=== PATIENT | female | born 1975 | race Caucasian/White ===

== ENCOUNTER 2022-07-27 14:26 | Outpatient (REF) | payer OTHER, MEDICAID, SELFPAY ==
[2022-07-27 14:46] LABS: MANUAL DIFF FLAG NO
[2022-07-27 15:02] LABS: Basophils Absolute Auto 0.1 X10*3/uL (0.0-0.2); Basophils Percent Auto 0.3 % (0-2); Eosinophils Absolute Auto 0.3 X10*3/uL (0.0-0.4); Eosinophils Percent Auto 1.9 % (0-4); Hematocrit 41.7 % (37.0-47.0); Hemoglobin 13.6 g/dl (12.0-16.0); Imm Gran Abs Auto 0.12 X10*3/uL (0.00-0.03); Imm Gran Pct Auto 0.8 % (0.0-0.4); Lymphocytes Absolute Auto 4.5 X10*3/uL (1.2-4.9); Lymphocytes Percent Auto 31.2 % (20-40); Mean Corpuscular HGB Conc 32.6 g/dl (31.0-35.0); Mean Corpuscular Hemoglobin 30.6 pg (27.0-33.0); Mean Corpuscular Volume 93.7 fL (80.0-98.0); Mean Platelet Volume 10.6 fL (9.4-12.3); Monocytes Absolute Auto 1.1 X10*3/uL (0.1-1.2); Monocytes Percent Auto 7.9 % (2-11); Neutrophils Absolute Auto 8.3 x10*3/uL (2.0-8.3); Neutrophils Percent Auto 57.9 % (45-73); Platelet Count 311 X10*3/uL (160-400); Red Blood Count 4.45 X10*6/uL (4.20-5.50); Red Cell Distribution Width 13.3 % (11.0-16.0); White Blood Count 14.4 X10*3/uL (4.8-10.8)
[2022-07-27 15:45] LABS: Erythrocyte Sedimentation Rate 5 MM/HR (0-20)
[2022-07-30 12:03] LABS: Anti Nuclear Antibody Screen NEGATIVE (NEGATIVE)
[2022-07-30 12:28] LABS: Alpha 1 Anti-trypsin 138 mg/dL (83-199)
[2022-07-30 14:08] LABS: Myeloperoxidase Antibody <1.0 AI; Proteinase 3 PR3 Antibodies <1.0 AI
[2022-07-30 17:13] LABS: IgA 201 mg/dL (47-310); IgG 934 mg/dL (600-1640); IgM 165 mg/dL (50-300)
[2022-07-30 21:43] LABS: Immunoglobulin E 2072 kU/L (<OR=114)
[2022-08-04 15:43] LABS: Asperg fumigatus Precip Abs NEGATIVE (NEGATIVE); Micropoly faeni Abs NEGATIVE (NEGATIVE); Pigeon serum Abs NEGATIVE (NEGATIVE); Saccharo pora viridis Abs NEGATIVE (NEGATIVE); Thermo candidus Abs NEGATIVE (NEGATIVE); Thermoa vulgaris #1 NEGATIVE (NEGATIVE)
== END 2022-07-27 14:27 | disposition home or self-care (01) ==
LOC: HO.LAB 14:26
PROVIDERS: Visit Provider Hospitalist
DX: J45.909 Unspecified asthma, uncomplicated (principal); R05.3 Chronic cough; R91.8 Other nonspecific abnormal finding of lung field
CPT/HCPCS: 36415; 82103; 82784; 82785; 85025; 85652; 86021; 86038; 86039; 86331; 86606; 86609; 87070; 87205

== ENCOUNTER 2022-08-06 16:28 | Outpatient (REF) | payer OTHER, MEDICAID, SELFPAY ==
--- NOTE | ~2022-08-06 | CT_ITS ---
EXAMINATION: CT CHEST WITHOUT CONTRAST CLINICAL INFORMATION: Chronic cough, asthma COMPARISON: None TECHNIQUE: Multidetector volumetric CT imaging of the chest was done. Axial MIP volume rendering provided. Sagittal and coronal reformatted images were obtained. This CT examination was performed using dose optimization techniques as appropriate, variously including the following: *Automated exposure control *Adjustment of mA and/or kV according to patient size (this includes techniques or standardized protocols for targeted exams where dose is matched to indication/reason for exam; i.e. extremities or head) *Use of iterative reconstruction technique DLP: 138 mGy-cm FINDINGS: LUNGS/PLEURA: Calcified nodule in the lateral aspect of the right upper lobe (series 5, image 187 measuring up to 9 mm with surrounding parenchymal changes in satellite micronodules possibly representing calcified granuloma versus region of prior infectious/inflammatory etiology. Smaller calcified and noncalcified nodules are noted throughout the right upper lobe for example calcified (series 5, image 260) measuring 1 mm and noncalcified (series 5, image 216) posterior laterally in the right upper lobe measuring 1 mm. Central airways are patent. No pneumothorax. No large pleural effusion. MEDIASTINUM: Heart is not enlarged. No pericardial effusion. No coronary artery calcifications. Aorta is nonaneurysmal. Main pulmonary artery is not enlarged. A few calcified precarinal, paratracheal, and right perihilar lymph nodes are noted suggesting prior granulomatous disease. Visualized portions of the thyroid are unremarkable. AXILLA: No lymphadenopathy. UPPER ABDOMEN: Unremarkable. OSSEOUS STRUCTURES: Unremarkable. CT/CT chest wo IV con IMPRESSION: 1. Calcified nodule in the lateral aspect of the right upper lobe measuring up to 9 mm with surrounding parenchymal changes and satellite micronodules possibly representing calcified granuloma versus region of prior infectious/inflammatory etiology. Smaller calcified and noncalcified nodules are noted throughout the right upper lobe for example calcified measuring 1 mm and noncalcified posterior laterally in the right upper lobe measuring 1 mm. Follow-up as per Fleischner criteria. 2. Calcified precarinal, paratracheal, and right perihilar lymph nodes are noted suggesting prior granulomatous disease. Various management parameters for solitary pulmonary nodules are in the literature. According to the Fleischner Society, recommendations for pulmonary nodules are as follows: According to the UPDATED 2017 Fleischner Society recommendations, the advised follow-up imaging for solid nodules < 6 mm is: LOW RISK PATIENT: No routine follow-up. HIGH RISK PATIENT: Optional CT at 12 months.
== END 2022-08-06 16:29 | disposition home or self-care (01) ==
LOC: HO.CT 16:28
PROVIDERS: Visit Provider Hospitalist
DX: R05.3 Chronic cough (principal); J45.909 Unspecified asthma, uncomplicated
CPT/HCPCS: 71250

== ENCOUNTER → 2022-11-13 10:37 | Outpatient (BNVA) | payer MEDICAID, SELFPAY | PROVIDERS: PCP Family Medicine; Visit Provider Hospitalist | DX: J45.51 Severe persistent asthma with (acute) exacerbation (principal); J40 Bronchitis, not specified as acute or chronic; R05.3 Chronic cough; U09.9 Post COVID-19 condition, unspecified | CPT/HCPCS: 99212 ==

== ENCOUNTER 2023-07-23 15:24 | Outpatient (AMB) | payer MEDICAID, SELFPAY ==
--- NOTE | 2023-07-23 15:25 | A.OFFVIS_ITS ---
Intake Vital Signs 07/23/23 15:26 Height 5 ft 4 in Weight 175 lb 4.28 oz BMI 30.1 BP 106/58 L Blood Pressure Location Lt brachial Position Sitting Respiration 16 Pulse 70 Pulse Source Pulse Oximeter Pulse Oximetry (%) 97 Oxygen Delivery Method Room Air Intake Visit Reasons: asthma Allergies Penicillins Allergy (Severe, Verified 07/23/23 15:28) Hives erythromycin base Allergy (Unknown, Verified 07/23/23 15:28) Unknown opiods Allergy (Severe, Uncoded 11/13/22 10:42) Vomiting HPI HPI Comments History of Present Illness Details The patient is a 47-year-old woman who was previously healthy until back beginning of the year when she she developed COVID-19. The patient did have significant respiratory complaints. Ultimately she recovered from COVID although she continued to have a worsening cough. The cough is productive in nature. Moderate severity. She also has significant wheezing. She was evaluated by pulmonology elsewhere. Partly workup included pulmonary function studies. In addition to that she had a chest x-ray without any acute disease. However she continues to require multiple courses of prednisone. Significant chest tightness and wheezing. She does have a nebulizer that she uses regularly. She did have a scare where her and mucus usually does up at nighttime she has a hard time expectorating. All of a sudden she felt she could not breathe and felt like she was going to . The patient ultimately was able to clear the mucus and ultimately was able to feel better. However, she does struggle because her symptoms do worsen at nighttime. In the office she did have significant rhonchi and wheezing. She was provided with 2 Xopenex treatments and also hypertonic saline. We were able to get a sputum culture sent to the laboratory. In the meantime she continues to have significant respiratory symptoms even on maximum respiratory therapy. She has been on Advair now for multiple months. Will go ahead and increase that over to Trelegy. I do believe that she will do better with nebulized therapies and the addition of budesonide in the meantime will be helpful to try to minimize systemic steroids. Patient will need blood work and ultimately if she still continues to have uncontrolled asthma then can consider biologic therapies. In addition to that based on the fact that she already had a chest x-ray and a pulmonary function study in continues to be symptomatic without a clear explanation go ahead and request a CT scan of the chest to assess for any bronchiectatic changes or any evidence of any pneumonitis. 11/13/2022 the patient is here for a pulm onary follow-up visit. The patient has had a tough several months. She had issues with her daughter who became gravely ill after an allergic reaction and then had to switch insurance. She ultimately was responding very well to the Trelegy inhaler. Her symptoms improved dramatically. A she was not requiring her rescue inhaler. Unfortunately then the insurance change though could not be filled. We did try to a prior approval but it was still not able to be filled. It was recommended that she start Breo and Incruse. Therefore explained to her that same medicine but taking separate inhalers and I will go ahead and send the script. In the meantime since she had not had the medication her wheezing became worse her coughing also worsen with mucus production. We did talk about her a lab work demonstrating an elevated IgE level of greater than 2000. We did talk about different biologic regimens that may be effective for her. In the meantime with her significant wheezing she may also need more prednisone. She just finished a course of prednisone last week. I will give her more prednisone for her to have. Her mucus is yellowish in color. Likely may have a little infection. Will go ahead and send her some Levaquin to see if we can treat her for enteric bacteria. As patient is not better we can always request a sputum culture to sent for further analysis. We did review also her CT scan demonstrating a calcified pulmonary nodule in the right upper lobe that she has had before otherwise no other significant findings noted. I do believe with her severe asthma symptoms and findings along with her significant allergic asthma she will be a great candidate for biologic therapy. In view of her severe allergy reactions I also provided with an EpiPen. She was also given instructions on how to use it effectively. 07/23/2023 the patient is here for pulmo nary follow-up visit. Overall the patient is doing better but seems that she did better on the Trelegy then the Breo and Incruse combination. Therefore will go ahead and switch her back to Trelegy is this is more effective when she used the medications in 1 device. The patient does still have significant asthma although at this point she has had a better baseline. She has constant daily wheezing. She is also demonstrating some eczema. She has had allergy testing in the past with signifi cantly elevated IgE levels. Therefore again we did talk about biologic therapies. She will benefit from biologic therapies to improve her symptoms overall. She still rather stay away from biologic therapies if she can avoid it. Will go ahead and recheck her blood work sometime in the springtime prior to the next visit so therefore we can address the question again. The patient may also benefit from allergy shots to try time modulated her immune response to the allergens in the future. 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 Bronchitis Chronic cough Asthma Social History (Updated 07/27/22 @ 13:47 by RIKA Alex) Patient Tobacco Use Status: Never used Tobacco Review of Systems Const Reports difficulty sleeping Eyes Denies change in vision ENT Reports nasal congestion, Reports nasal discharge and Reports post nasal drip Card Denies chest pain and Reports dyspnea Resp Reports change in phlegm color, Reports chest congestion, Reports cough, Reports excessive phlegm production, Reports dyspnea and Reports wheezing GI Denies abdominal pain Musc Reports no additional complaints Skin/Breast Reports rash Neuro Reports no additional complaints Psych Reports no additional complaints Endo Denies flushing Tomasz/Lymph Denies easy bleeding Aller/Immun Reports wheezing Physical Exam Vital Signs: Last Vital Signs Pulse 70 07/23/23 15:26 Resp 16 07/23/23 15:26 BP 106/58 L 07/23/23 15:26 Pulse Ox 97 07/23/23 15:26 Oxygen Delivery Method Room Air 07/23/23 15:26 BMI result Body Mass Index 30.1 Const General: comfortable HEENT Head: Yes atraumatic Eyes General: appearance normal, both eyes and all related structures Neck Neck: Yes supple Chest Chest palpation & inspection: normal inspection of the chest Resp Effort & Inspection: normal respiratory effort Auscultation: no crackles, no rales, no rhonchi, wheezes and diminished lung sounds Cardio Rate: regular rate Rhythm: regular rhythm Heart sounds: S1 normal heart sound present and S2 normal heart sound present GI Auscultation: normal bowel sounds Skin Rashes: no rashes Extrem General: Yes no clubbing, cyanosis or edema Assessment & Plan Assessment & Plan (1) Asthma: Code(s): J45.909 - Unspecified asthma, uncomplicated Qualifiers: Asthma complication type: uncomplicated Asthma persistence: persistent Asthma severity: severe Qualified Code(s): J45.50 - Severe persistent asthma, uncomplicated (2) Bronchitis: Code(s): J40 - Bronchitis, not specified as acute or chronic (3) Chronic cough: Code(s): R05.3 - Chronic cough (4) 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, unspecified Plan stop Breo and Incruse (not as effective) start Trelegy 200 start Singulair Acapella valve for CPT Should consider starting Biologic if no better (Xolair versus Dupixent) Likely dupixent based on her worsening atopic dermatitis Epipen Bloodwork in the Spring follow-up in 4 months Orders: Orders Complete Blood Count Auto Diff Today J40 - Bronchitis, not specified as acute or chronic, J45.909 - Unspecified asthma, uncomplicated Erythrocyte Sedimentation Rate Today J40 - Bronchitis, not specified as acute or chronic, J45.909 - Unspecified asthma, uncomplicated Immunoglobulin E Today J40 - Bronchitis, not specified as acute or chronic, J45.909 - Unspecified asthma, uncomplicated Medications: New montelukast (Singulair) 10 mg PO BEDTIME 30 tabs 11RF 30 days J45.909 - Unspecified asthma, uncomplicated Refilled bfdutxtfllq-wpvbebgpv-gvgztecm 200-62.5-25 mcg (Trelegy Ellipta) 1 inh inhalation DAILY 60 ea 4RF 30 days ymosndthjwd-jybcphbuf-cfnthwph 200-62.5-25 mcg (Trelegy Ellipta) 1 inh inhalation DAILY 30 days 60 ea 4RF Coding Level of Care Code Est Pt Level 4 (95104) Diagnoses Severe persistent asthma without complication J45.50 Asthma complication type: uncomplicated Asthma persistence: persistent Asthma severity: severe Bronchitis J40 Chronic cough R05.3 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
[2023-07-23 15:26] VITALS: BP 106/58; PULSE 70; RESP 16; O2SAT 97; BMI 30.1
== END 2023-07-23 15:56 | disposition home or self-care (01) ==
PROVIDERS: PCP Family Medicine; Visit Provider Hospitalist
DX: J45.50 Severe persistent asthma, uncomplicated (principal); J40 Bronchitis, not specified as acute or chronic; R05.3 Chronic cough; U09.9 Post COVID-19 condition, unspecified
CPT/HCPCS: 99214

== ENCOUNTER → 2023-07-23 15:24 | Outpatient (BNVA) | payer MEDICAID, SELFPAY | PROVIDERS: PCP Family Medicine; Visit Provider Hospitalist | DX: J45.50 Severe persistent asthma, uncomplicated (principal); J40 Bronchitis, not specified as acute or chronic; R05.3 Chronic cough; U09.9 Post COVID-19 condition, unspecified | CPT/HCPCS: 99212 ==

== ENCOUNTER 2024-07-28 15:17 | Outpatient (REF) | payer OTHER, SELFPAY ==
[2024-07-28 16:31] LABS: MANUAL DIFF FLAG NO
[2024-07-28 17:07] LABS: Basophils Percent Auto 0.3 % (0-2); Eosinophils Absolute Auto 0.2 X10*3/uL (0.0-0.4); Eosinophils Percent Auto 3.2 % (0-4); Hematocrit 41.3 % (37.0-47.0); Hemoglobin 13.9 g/dl (12.0-16.0); Imm Gran Abs Auto 0.01 X10*3/uL (0.00-0.03); Imm Gran Pct Auto 0.1 % (0.0-0.4); Lymphocytes Absolute Auto 2.5 X10*3/uL (1.2-4.9); Lymphocytes Percent Auto 32.4 % (20-40); Mean Corpuscular HGB Conc 33.7 g/dl (31.0-35.0); Mean Corpuscular Hemoglobin 31.5 pg (27.0-33.0); Mean Corpuscular Volume 93.7 fL (80.0-98.0); Mean Platelet Volume 10.8 fL (9.4-12.3); Monocytes Absolute Auto 0.5 X10*3/uL (0.1-1.2); Monocytes Percent Auto 6.6 % (2-11); Neutrophils Absolute Auto 4.3 x10*3/uL (2.0-8.3); Neutrophils Percent Auto 57.4 % (45-73); Platelet Count 338 X10*3/uL (160-400); Red Blood Count 4.41 X10*6/uL (4.20-5.50); Red Cell Distribution Width 12.7 % (11.0-16.0); White Blood Count 7.6 X10*3/uL (4.8-10.8)
[2024-07-28 17:48] LABS: Erythrocyte Sedimentation Rate 5 MM/HR (0-20)
[2024-07-29 13:09] LABS: IgA 214 mg/dL (47-310); IgG 1043 mg/dL (600-1640); IgM 184 mg/dL (50-300)
[2024-07-30 07:39] LABS: Class Alternaria alternata 0; Class Aspergillus fumigatus 0/1; Class Bermuda Grass 0/1; Class Birch 0; Class Cat Dander 2; Class Cladosporium herbarum 0/1; Class Cockroach 3; Class Common Ragweed 0/1; Class Cottonwood 0/1; Class Derm. pterony 5; Class Dermatophagoides farinae 5; Class Dog Dander 4; Class Elm 0; Class Maple Box Elder 0/1; Class Mountain Cedar 2; Class Mouse Urine Protein 0; Class Mugwort 0/1; Class Oak 0/1; Class Penicillium crysogenum 0/1; Class Rough Pigweed 0/1; Class Sheep Sorrel 0; Class Sycamore 0/1; Class Timothy Grass 0/1; Class Walnut Tree 0/1; Class White Ash 0/1; Class White Mulberry 0; E001 - IgE Cat Dander 2.33 kU/L; E072-IgE Mouse Urine <0.10 kU/L; G002 IgE Bermuda Grass 0.13 kU/L; G006 - IgE Timothy Grass 0.28 kU/L; I006-IgE Cockroach, German 8.03 kU/L; Immunoglobulin E 1580 kU/L (<OR=114); M001 IgE Penicillium chrysogen 0.14 kU/L; M002 - IgE Cladosporium herbar 0.22 kU/L; M003 - IgE Aspergillus fumigat 0.22 kU/L; M006 - IgE Alternaria alternat <0.10 kU/L; T001 IgE Maple/Box Elder 0.11 kU/L; T003 IgE Common Silver Birch <0.10 kU/L; T006 - IgE Cedar, Mountain 0.77 kU/L; T007 - IgE Oak, White 0.13 kU/L; T008 IgE Elm, American <0.10 kU/L; T010 - IgE Walnut 0.12 kU/L; T011 - IgE Maple Leaf Sycamore 0.19 kU/L; T014 - IgE Cottonwood 0.17 kU/L; T015 - IgE Ash, White 0.14 kU/L; T070 - IgE White Mulberry <0.10 kU/L; W001 - IgE Ragweed, Short 0.11 kU/L; W006 - IgE Mugwort 0.21 kU/L; W014 IgE Pigweed, Common 0.18 kU/L; W018 IgE Sheep Sorrel <0.10 kU/L
[2024-07-30 13:58] LABS: Anti Nuclear Antibody Screen NEGATIVE (NEGATIVE)
[2024-07-31 05:03] LABS: TS Negative Control Passed; TS Panel A 0; TS Panel B 0; TS Positive Control Passed; TSpotTB Negative (Negative)
[2024-08-05 08:53] LABS: Asperg fumigatus Precip Abs NEGATIVE; Micropoly faeni Abs NEGATIVE; Pigeon serum Abs NEGATIVE; Saccharo pora viridis Abs NEGATIVE; Thermo candidus Abs NEGATIVE; Thermoa vulgaris #1 NEGATIVE
== END 2024-07-28 15:18 | disposition home or self-care (01) ==
LOC: HO.LAB 15:17
PROVIDERS: PCP Family Medicine; Visit Provider Hospitalist
DX: J40 Bronchitis, not specified as acute or chronic (principal); J45.50 Severe persistent asthma, uncomplicated; R05.3 Chronic cough; R91.1 Solitary pulmonary nodule; R91.8 Other nonspecific abnormal finding of lung field; T78.40XA Allergy, unspecified, initial encounter
CPT/HCPCS: 36415; 82784; 82785; 85025; 85652; 86003; 86038; 86331; 86481; 86606; 86609; 99212

== ENCOUNTER 2024-07-28 15:17 | Outpatient (AMB) | payer OTHER, SELFPAY ==
--- NOTE | 2024-07-28 15:21 | MHC.OFFVIS ---
Vital Signs 07/28/24 15:23 Height 5 ft 3 in Weight 168 lb 10.458 oz BMI 29.9 BP 112/68 Blood Pressure Location Lt brachial Position Sitting Pulse 72 Pulse Oximetry (%) 97 Oxygen Delivery Method Room Air Intake Visit Reasons: Asthma follow-up Cleaner Operator Required: No Legal Document Assistant: Legal Document Assistant offered & declined Accompanied by: Self / Same As Patient Allergies Penicillins Allergy (Severe, Verified 07/28/24 15:27) Hives erythromycin base Allergy (Unknown, Verified 07/28/24 15:27) Unknown opiods Allergy (Severe, Uncoded 07/28/24 15:27) Vomiting Medication List - Last Reconciled 07/28/24 by Felecia Hernandez LPN albuterol sulfate 0.63 mg inhalation Q4-6H PRN albuterol sulfate 90 mcg/actuation 2 puffs inhalation Q6H PRN albuterol sulfate 90 mcg/actuation 2 inhalations inhalation Q6H PRN 30 days budesonide 0.5 mg (2 mL) inhalation DAILY 30 days budesonide 0.5 mg (2 mL) inhalation BID 30 days doxycycline hyclate 100 mg PO BID 10 days epinephrine (EpiPen 2-Maximo) 0.3 mg (0.3 mL) IM Q10M PRN 30 days fluticasone furoate-vilanterol 200-25 mcg/dose (Breo Ellipta) 1 inh inhalation DAILY 30 days reyebibgntk-gtujfqnws-ojytikjy 200-62.5-25 mcg (Trelegy Ellipta) 1 inh inhalation DAILY 30 days levalbuterol HCl (Xopenex) 1.25 mg (3 mL) inhalation Q6H PRN 30 days levofloxacin 500 mg PO DAILY 14 days montelukast (Singulair) 10 mg PO BEDTIME 90 days nebulizers As directed prednisone PO daily; Take 6 tabs daily x 3 days, then 5 tabs x 3 days, then 4 tabs x 3 days, then 3 tabs x 3 days, then 2 tabs daily x 3 days, then 1 tab x 3 days to complete. 18 days umeclidinium 62.5 mcg/actuation (Incruse Ellipta) 1 inh inhalation DAILY 30 days HPI Comments Details: The patient is a 48-year-old woman who was previously healthy until back beginning of the year when she she developed COVID-19. The patient did have significant respiratory complaints. Ultimately she recovered from COVID although she continued to have a worsening cough. The cough is productive in nature. Moderate severity. She also has significant wheezing. She was evaluated by pulmonology elsewhere. Partly workup included pulmonary function studies. In addition to that she had a chest x-ray without any acute disease. However she continues to require multiple courses of prednisone. Significant chest tightness and wheezing. She does have a nebulizer that she uses regularly. She did have a scare where her and mucus usually does up at nighttime she has a hard time expectorating. All of a sudden she felt she could not breathe and felt like she was going to . The patient ultimately was able to clear the mucus and ultimately was able to feel better. However, she does struggle because her symptoms do worsen at nighttime. In the office she did have significant rhonchi and wheezing. She was provided with 2 Xopenex treatments and also hypertonic saline. We were able to get a sputum culture sent to the laboratory. In the meantime she continues to have significant respiratory symptoms even on maximum respiratory therapy. She has been on Advair now for multiple months. Will go ahead and increase that over to Trelegy. I do believe that she will do better with nebulized therapies and the addition of budesonide in the meantime will be helpful to try to minimize systemic steroids. Patient will need blood work and ultimately if she still continues to have uncontrolled asthma then can consider biologic therapies. In addition to that based on the fact that she already had a chest x-ray and a pulmonary function study in continues to be symptomatic without a clear explanation go ahead and request a CT scan of the chest to assess for any bronchiectatic changes or any evidence of any pneumonitis. 11/13/2022 the patient is here for a pulmonary follow-up visit. The patient has had a tough several months. She had issues with her daughter who became gravely ill after an allergic reaction and then had to switch insurance. She ultimately was responding very well to the Trelegy inhaler. Her symptoms improved dramatically. A she was not requiring her rescue inhaler. Unfortunately then the insurance change though could not be filled. We did try to a prior approval but it was still not able to be filled. It was recommended that she start Breo and Incruse. Therefore explained to her that same medicine but taking separate inhalers and I will go ahead and send the script. In the meantime since she had not had the medication her wheezing became worse her coughing also worsen with mucus production. We did talk about her a lab work demonstrating an elevated IgE level of greater than 2000. We did talk about different biologic regimens that may be effective for her. In the meantime with her significant wheezing she may also need more prednisone. She just finished a course of prednisone last week. I will give her more prednisone for her to have. Her mucus is yellowish in color. Likely may have a little infection. Will go ahead and send her some Levaquin to see if we can treat her for enteric bacteria. As patient is not better we can always request a sputum culture to sent for further analysis. We did review also her CT scan demonstrating a calcified pulmonary nodule in the right upper lobe that she has had before otherwise no other significant findings noted. I do believe with her severe asthma symptoms and findings along with her significant allergic asthma she will be a great candidate for biologic therapy. In view of her severe allergy reactions I also provided with an EpiPen. She was also given instructions on how to use it effectively. 07/23/2023 the patient is here for pulmonary follow-up visit. Overall the patient is doing better but seems that she did better on the Trelegy then the Breo and Incruse combination. Therefore will go ahead and switch her back to Trelegy is this is more effective when she used the medications in 1 device. The patient does still have significant asthma although at this point she has had a better baseline. She has constant daily wheezing. She is also demonstrating some eczema. She has had allergy testing in the past with significantly elevated IgE levels. Therefore again we did talk about biologic therapies. She will benefit from biologic therapies to improve her symptoms overall. She still rather stay away from biologic therapies if she can avoid it. Will go ahead and recheck her blood work sometime in the springtime prior to the next visit so therefore we can address the question again. The patient may also benefit from allergy shots to try time modulated her immune response to the allergens in the future. 07/28/2024 the patient is here for a pulmonary follow-up visit. Overall she is doing fair. She responded well to the Trelegy and she is also using the singular. She is trying to exercise regularly and she is trying to minimize allergy exposure. Still though she still has a hard time breathing at times. She has needed some prednisone here and there for exacerbations. The last time we did blood work her IgE level significantly elevated and her CBC with differential demonstrated a neutrophilic predominant. On examination the patient continues to have significant wheezing and rhonchi. She is working closely with reflux disease and she is feels that minimizing her reflux has improve her overall breathing. I do believe that this plays a big role although I do believe that she also has a significant allergic component. Therefore based on the fact that she is not completely responding to Trelegy will go ahead and request blood work. In addition to that I did review her last CT scan of the chest back in 2021 which she had evidence of granulomas suggesting of granulomas related diseases. Therefore the blood work will also include a T spot to make sure that there isn't any history of latent tuberculosis. Depending on the blood work will talk about biologics. I do believe the patient is a great candidate for biologics at this time specially since she has tried and failed all inhalers as she continues to be symptomatic even on Trelegy and she continues to require prednisone on a regular basis. 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 Bronchitis Chronic cough Asthma Social History Patient Tobacco Use Status: Never used Tobacco Review of Systems Const Reports difficulty sleeping Eyes Denies change in vision ENT Reports nasal congestion, Reports nasal discharge and Reports post nasal drip Card Denies chest pain and Reports dyspnea Resp Reports chest congestion, Reports cough, Reports dyspnea and Reports wheezing GI Reports dyspepsia and Reports heartburn Musc Reports no additional complaints Skin/Breast Reports rash Neuro Reports no additional complaints Psych Reports no additional complaints Endo Denies flushing Tomasz/Lymph Denies easy bleeding Aller/Immun Reports wheezing Physical Exam Vital Signs: Last Vital Signs Pulse 72 07/28/24 15:23 BP 112/68 07/28/24 15:23 Pulse Ox 97 07/28/24 15:23 Oxygen Delivery Method Room Air 07/28/24 15:23 BMI result Body Mass Index 29.9 Const General: comfortable HEENT Head: Yes atraumatic Eyes General: appearance normal, both eyes and all related structures Neck Neck: Yes supple Chest Chest palpation & inspection: normal inspection of the chest Resp Effort & Inspection: normal respiratory effort and prolonged expiratory phase Auscultation: no crackles, no rales, rhonchi, wheezes and diminished lung sounds Cardio Rate: regular rate Rhythm: regular rhythm Heart sounds: S1 normal heart sound present and S2 normal heart sound present GI Auscultation: normal bowel sounds Skin Rashes: no rashes Extrem General: Yes no clubbing, cyanosis or edema Assessment & Plan Assessment & Plan (1) Asthma: Code(s): J45.909 - Unspecified asthma, uncomplicated Category: Medical Qualifiers: Asthma complication type: uncomplicated Asthma persistence: persistent Asthma severity: severe Qualified Code(s): J45.50 - Severe persistent asthma, uncomplicated (2) Bronchitis: Code(s): J40 - Bronchitis, not specified as acute or chronic Category: Medical (3) Chronic cough: Code(s): R05.3 - Chronic cough Category: Medical (4) Allergies: Code(s): T78.40XA - Allergy, unspecified, initial encounter Category: Medical Qualifiers: Encounter type: subsequent encounter Qualified Code(s): T78.40XD - Allergy, unspecified, subsequent encounter (5) Pulmonary nodule: Comment: calcified consistent with a granuloma Code(s): R91.1 - Solitary pulmonary nodule Category: Medical Plan continue Trelegy 200 Singulair Acapella valve for CPT Continues symptomatic, multiple courses of prednisone. Needs to start Biologic (Xolair versus Dupixent) Likely dupixent based on her worsening atopic dermatitis. But we will request bloodwotk CXR Epipen follow-up in 3 months Orders: Orders Complete Blood Count Auto Diff Today J40 - Bronchitis, not specified as acute or chronic, J45.50 - Severe persistent asthma, uncomplicated, R05.3 - Chronic cough, T78.40XA - Allergy, unspecified, initial encounter Hypersensitive Pneumonitis Prf Today J40 - Bronchitis, not specified as acute or chronic, J45.50 - Severe persistent asthma, uncomplicated, R05.3 - Chronic cough, R91.8 - Other nonspecific abnormal finding of lung field, T78.40XA - Allergy, unspecified, initial encounter NIEVES Reflex Titer and Pattern Today J40 - Bronchitis, not specified as acute or chronic, J45.50 - Severe persistent asthma, uncomplicated, R05.3 - Chronic cough, T78.40XA - Allergy, unspecified, initial encounter XR chest 2V Today J40 - Bronchitis, not specified as acute or chronic, J45.50 - Severe persistent asthma, uncomplicated, R05.3 - Chronic cough, T78.40XA - Allergy, unspecified, initial encounter T Spot TB Today J40 - Bronchitis, not specified as acute or chronic, J45.50 - Severe persistent asthma, uncomplicated, R05.3 - Chronic cough, T78.40XA - Allergy, unspecified, initial encounter Resp Allergy Profile Region I Today J40 - Bronchitis, not specified as acute or chronic, J45.50 - Severe persistent asthma, uncomplicated, R05.3 - Chronic cough, R91.1 - Solitary pulmonary nodule, T78.40XA - Allergy, unspecified, initial encounter Immunoglobulins,IgG IgA IgM Today J40 - Bronchitis, not specified as acute or chronic, J45.50 - Severe persistent asthma, uncomplicated, R05.3 - Chronic cough, T78.40XA - Allergy, unspecified, initial encounter Immunoglobulin E Today J40 - Bronchitis, not specified as acute or chronic, J45.50 - Severe persistent asthma, uncomplicated, R05.3 - Chronic cough, T78.40XA - Allergy, unspecified, initial encounter Erythrocyte Sedimentation Rate Today J40 - Bronchitis, not specified as acute or chronic, J45.50 - Severe persistent asthma, uncomplicated, R05.3 - Chronic cough, T78.40XA - Allergy, unspecified, initial encounter Coding Level of Care Code Est Pt Level 4 (98717) Diagnoses Severe persistent asthma without complication J45.50 Asthma complication type: uncomplicated Asthma persistence: persistent Asthma severity: severe Bronchitis J40 Chronic cough R05.3 Allergy, subsequent encounter T78.40XD Encounter type: subsequent encounter Pulmonary nodule R91.1 Time Spent (min) 17
[2024-07-28 15:23] VITALS: BP 112/68; PULSE 72; O2SAT 97; BMI 29.9
== END 2024-07-28 16:07 | disposition home or self-care (01) ==
PROVIDERS: PCP Family Medicine; Visit Provider Hospitalist
DX: J45.50 Severe persistent asthma, uncomplicated (principal); J40 Bronchitis, not specified as acute or chronic; R05.3 Chronic cough; T78.40XD Allergy, unspecified, subsequent encounter; R91.1 Solitary pulmonary nodule
CPT/HCPCS: 99214

== ENCOUNTER 2024-11-02 15:28 | Outpatient (AMB) | payer OTHER, SELFPAY ==
--- NOTE | 2024-11-02 15:38 | A.OFFVIS_ITS ---
Vital Signs 11/02/24 15:39 Height 5 ft 3 in Weight 166 lb 7.184 oz BMI 29.5 BP 120/68 Blood Pressure Location Rt brachial Position Sitting Pulse 65 Pulse Source Pulse Oximeter Pulse Oximetry (%) 98 Oxygen Delivery Method Room Air Intake Visit Reasons: Asthma follow-up Allergies Penicillins Allergy (Severe, Verified 11/02/24 15:44) Hives erythromycin base Allergy (Unknown, Verified 11/02/24 15:44) Unknown opiods Allergy (Severe, Uncoded 11/02/24 15:44) Vomiting HPI Comments Details: The patient is a 49-year-old woman who was previously healthy until back beginning of the year when she she developed COVID-19. The patient did have significant respiratory complaints. Ultimately she recovered from COVID altho ugh she continued to have a worsening cough. The cough is productive in nature. Moderate severity. She also has significant wheezing. She was evaluated by pulmonology elsewhere. Partly workup included pulmonary function studies. In addition to that she had a chest x-ray without any acute disease. However she continues to require multiple courses of prednisone. Significant chest tightness and wheezing. She does have a nebulizer that she uses regularly. She did have a scare where her and mucus usually does up at nighttime she has a hard time expectorating. All of a sudden she felt she could not breathe and felt like she was going to . The patient ultimately was able to clear the mucus and ultimately was able to feel better. However, she does struggle because her symptoms do worsen at nighttime. In the office she did have significant rhonchi and wheezing. She was provided with 2 Xopenex treatments and also hypertonic saline. We were able to get a sputum culture sent to the laboratory. In the meantime she continues to have significant respiratory symptoms even on maximum respiratory therapy. She has been on Advair now for multiple months. Will go ahead and increase that over to Trelegy. I do believe that she will do better with nebulized therapies and the addition of budesonide in the meantime will be helpful to try to minimize systemic steroids. Patient will need blood work and ultimately if she still continues to have uncontrolled asthma then can consider biologic therapies. In addition to that based on the fact that she already had a chest x-ray and a pulmonary function study in continues to be symptomatic without a clear explanation go ahead and request a CT scan of the chest to assess for any bronchiectatic changes or any evidence of any pneumonitis. 11/13/2022 the patient is here for a pulmonary follow-up visit. The patient has had a tough several months. She had issues with her daughter who became gravely ill after an allergic reaction and then had to switch insurance. She ultimately was responding very well to the Trelegy inhaler. Her symptoms improved dramatically. A she was not requiring her rescue inhaler. Unfortunately then the insurance change though could not be filled. We did try to a prior approval but it was still not able to be filled. It was recommended that she start Breo and Incruse. Therefore explained to her that same medicine but taking separate inhalers and I will go ahead and send the script. In the meantime since she had not had the medication her wheezing became worse her coughing also worsen with mucus production. We did talk about her a lab work demonstrating an elevated IgE level of greater than 2000. We did talk about different biologic regimens that may be effective for her. In the meantime with her significant wheezing she may also need more prednisone. She just finished a course of prednisone last week. I will give her more prednisone for her to have. Her mucus is yellowish in color. Likely may have a little infection. Will go ahead and send her some Levaquin to see if we can treat her for enteric bacteria. As patient is not better we can always request a sputum culture to sent for further analysis. We did review also her CT scan demonstrating a calcified pulmonary nodule in the right upper lobe that she has had before otherwise no other significant findings noted. I do believe with her severe asthma symptoms and findings along with her significant allergic asthma she will be a great candidate for biologic therapy. In view of her severe allergy reactions I also provided with an EpiPen. She was also given instructions on how to use it effectively. 07/23/2023 the patient is here for pulmonary follow-up visit. Overall the patient is doing better but seems that she did better on the Trelegy then the Breo and Incruse combination. Therefore will go ahead and switch her back to Trelegy is this is more effective when she used the medications in 1 device. The patient does still have significant asthma although at this point she has had a better baseline. She has constant daily wheezing. She is also demonstrating some eczema. She has had allergy testing in the past with significantly elevated IgE levels. Therefore again we did talk about biologic therapies. She will benefit from biologic therapies to improve her symptoms overall. She still rather stay away from biologic therapies if she can avoid it. Will go ahead and recheck her blood work sometime in the springtime prior to the next visit so therefore we can address the question again. The patient may also benefit from allergy shots to try time modulated her immune response to the allergens in the future. 07/28/2024 the patient is here for a pulmonary follow-up visit. Overall she is doing fair. She responded well to the Trelegy and she is also using the singular. She is trying to exercise regularly and she is trying to minimize allergy exposure. Still though she still has a hard time breathing at times. She has needed some prednisone here and there for exacerbations. The last time we did blood work her IgE level significantly elevated and her CBC with differential demonstrated a neutrophilic predominant. On examination the patient continues to have significant wheezing and rhonchi. She is working closely with reflux disease and she is feels that minimizing her reflux has improve her overall breathing. I do believe that this plays a big role although I do believe that she also has a significant allergic component. Therefore based on the fact that she is not completely responding to Trelegy will go ahead and request blood work. In addition to that I did review her last CT scan of the chest back in 2021 which she had evidence of granulomas suggesting of granulomas related diseases. Therefore the blood work will also include a T spot to make sure that there isn't any history of latent tuberculosis. Depending on the blood work will talk about biologics. I do believe the patient is a great candidate for biologics at this time specially since she has tried and failed all inhalers as she continues to be symptomatic even on Trelegy and she continues to require prednisone on a regular basis. 11/02/2024 the patient is here for a pulmonary follow-up visit. Since we last spoke she was exposed to the flu and she developed flu-like symptoms. Her daughter tested positive for flu A. She never did test. She did continues take her medications as prescribed. In she continued to have a cough that has been lingering. She feels some heaviness of the chest moderate severity. She now is wondering about taking something to make the symptoms improved. She has significant rhonchi and wheezing on exam and diminished breath sounds along with prolonged expiratory phase. Will go ahead and order prednisone for her and also she can start doxycycline for postviral bacterial bronchitis. In the meantime the patient does continue with the Trelegy. She continues to have symptoms on a regular basis and she has a significantly elevated IgE. The patient also has an elevated eosinophil count. Will go ahead and start her on Dupixent as the very good option to treat her severe persistent asthma with frequent exacerbations, her dermatitis at this time. 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 Bronchitis Chronic cough Asthma Social History Patient Tobacco Use Status: Never used Tobacco Review of Systems Const Reports difficulty sleeping Eyes Denies change in vision ENT Reports nasal congestion, Reports nasal discharge and Reports post nasal drip Card Denies chest pain and Reports dyspnea Resp Reports chest congestion, Reports cough, Reports dyspnea and Reports wheezing GI Reports dyspepsia and Reports heartburn Musc Reports no additional complaints Skin/Breast Reports rash Neuro Reports no additional complaints Psych Reports no additional complaints Endo Denies flushing Tomasz/Lymph Denies easy bleeding Aller/Immun Reports wheezing Physical Exam Vital Signs: Last Vital Signs Pulse 65 11/02/24 15:39 BP 120/68 11/02/24 15:39 Pulse Ox 98 11/02/24 15:39 Oxygen Delivery Method Room Air 11/02/24 15:39 BMI result Body Mass Index 29.5 Const General: comfortable HEENT Head: Yes atraumatic Eyes General: appearance normal, both eyes and all related structures Neck Neck: Yes supple Chest Chest palpation & inspection: normal inspection of the chest Resp Effort & Inspection: normal respiratory effort and prolonged expiratory phase Auscultation: no crackles, no rales, rhonchi, wheezes and diminished lung sounds Cardio Rate: regular rate Rhythm: regular rhythm Heart sounds: S1 normal heart sound present and S2 normal heart sound present GI Auscultation: normal bowel sounds Skin Rashes: no rashes Extrem General: Yes no clubbing, cyanosis or edema Assessment & Plan Assessment & Plan (1) Asthma: Code(s): J45.909 - Unspecified asthma, uncomplicated Category: Medical Qualifiers: Asthma complication type: uncomplicated Asthma persistence: persistent Asthma severity: severe Qualified Code(s): J45.50 - Severe persistent asthma, uncomplicated (2) Bronchitis: Code(s): J40 - Bronchitis, not specified as acute or chronic Category: Medical (3) Chronic cough: Code(s): R05.3 - Chronic cough Category: Medical (4) Allergies: Code(s): T78.40XA - Allergy, unspecified, initial encounter Category: Medical Qualifiers: Encounter type: subsequent encounter Qualified Code(s): T78.40XD - Allergy, unspecified, subsequent encounter (5) Pulmonary nodule: Comment: calcified consistent with a granuloma Code(s): R91.1 - Solitary pulmonary nodule Category: Medical Plan continue Trelegy 200 stpped Daliresp start Doxycycline Prednisone 40mg with taper start Dupixent Singulair Acapella valve for CPT Epipen follow-up in 3-4 months Medications: New doxycycline hyclate 100 mg PO BID 20 caps 0RF 10 days epinephrine (EpiPen 2-Maximo) for 2 doses 0.3 mg (0.3 mL) IM Q10M PRN 2 ea 6RF anaphylaxis 30 days J45.40 - Moderate persistent asthma, uncomplicated Coding Level of Care Code Est Pt Level 4 (62835) Diagnoses Severe persistent asthma without complication J45.50 Asthma complication type: uncomplicated Asthma persistence: persistent Asthma severity: severe Bronchitis J40 Chronic cough R05.3 Allergy, subsequent encounter T78.40XD Encounter type: subsequent encounter Pulmonary nodule R91.1 Time Spent (min) 16
[2024-11-02 15:39] VITALS: BP 120/68; PULSE 65; O2SAT 98; BMI 29.5
== END 2024-11-02 16:19 | disposition home or self-care (01) ==
LOC: HO.HPS 15:28
PROVIDERS: PCP Internal Medicine; Visit Provider Hospitalist
DX: J45.50 Severe persistent asthma, uncomplicated (principal); J40 Bronchitis, not specified as acute or chronic; R05.3 Chronic cough; T78.40XD Allergy, unspecified, subsequent encounter; R91.1 Solitary pulmonary nodule
CPT/HCPCS: 99214

== ENCOUNTER → 2024-11-02 15:28 | Outpatient (BNVA) | payer OTHER, SELFPAY | PROVIDERS: PCP Internal Medicine; Visit Provider Hospitalist | DX: J45.50 Severe persistent asthma, uncomplicated (principal); J40 Bronchitis, not specified as acute or chronic; R05.3 Chronic cough; R91.1 Solitary pulmonary nodule; T78.40XD Allergy, unspecified, subsequent encounter; X58.XXXD Exposure to other specified factors, subsequent encounter | CPT/HCPCS: 99212 ==

== ENCOUNTER 2024-12-09 09:10 | Outpatient (AMB) | payer OTHER, SELFPAY ==
[2024-12-09 10:43] VITALS: BP 110/68; PULSE 72; O2SAT 97
--- NOTE | 2024-12-09 10:43 | A.OFFVIS_ITS ---
Vital Signs 12/09/24 10:43 Height 5 ft 3 in BP 110/68 Blood Pressure Location Rt brachial Position Sitting Pulse 72 Pulse Source Pulse Oximeter Pulse Oximetry (%) 97 Oxygen Delivery Method Room Air Intake Visit Reasons: dupixent teaching Allergies Penicillins Allergy (Severe, Verified 12/09/24 10:44) Hives erythromycin base Allergy (Unknown, Verified 12/09/24 10:44) Unknown opiods Allergy (Severe, Uncoded 12/09/24 10:44) Vomiting Medication List - Last Reconciled 12/09/24 by Nubia Hook LPN albuterol sulfate 0.63 mg inhalation Q4-6H PRN albuterol sulfate 90 mcg/actuation 2 puffs inhalation Q6H PRN albuterol sulfate 90 mcg/actuation 2 inhalations inhalation Q6H PRN 30 days budesonide 0.5 mg (2 mL) inhalation DAILY 30 days budesonide 0.5 mg (2 mL) inhalation BID 30 days doxycycline hyclate 100 mg PO BID 10 days dupilumab (Dupixent) 300 mg (2 mL) subcut Q2W 4 weeks dupilumab (Dupixent) 600 mg (4 mL) subcut ONCE 2 weeks epinephrine (EpiPen 2-Maximo) 0.3 mg (0.3 mL) IM Q10M PRN 30 days epinephrine (EpiPen 2-Maximo) 0.3 mg (0.3 mL) IM Q10M PRN 30 days [id number]-ywtawpds 200-62.5-25 mcg (Trelegy Ellipta) 1 inh inhalation DAILY 30 days montelukast (Singulair) 10 mg PO BEDTIME 90 days nebulizers As directed roflumilast (Daliresp) 250 mcg PO DAILY 30 days HPI Comments Details: Jyoti and her Grady are here for a Dupixent teach Grady was educated on hand washing, injection preparation, administration, and disposal.? Grady was able to return demonstrate proper technique for hand washing, injection preparation, administration and disposal of needle and states he has no questions at this time. Medication Dupixent 300mg/2mL autoinjector (patient?s own meds) Loading dose of 600mg given by her in 2 SQ injections; injection #1 R upper arm ;? injection #2 L thigh? Lot# [id number] expires 07/25/2026. Patient and her spouse aware her next injection is in 15 days. Nurse visit only.? [facility] Medical History (Updated 07/28/24 @ 22:32 by Ashok Doran MD) Pulmonary nodule Allergies [id number] syndrome Bronchitis Chronic cough Asthma Social History Patient Tobacco Use Status: Never used Tobacco Physical Exam Vital Signs: Last Vital Signs Pulse 72 12/09/24 10:43 BP 110/68 12/09/24 10:43 Pulse Ox 97 12/09/24 10:43 Oxygen Delivery Method Room Air 12/09/24 10:43 Assessment & Plan Assessment & Plan (1) Asthma: Code(s): J45.909 - Unspecified asthma, uncomplicated Category: Medical Qualifiers: Asthma complication type: uncomplicated Asthma persistence: persistent Asthma severity: severe Qualified Code(s): J45.50 - Severe persistent asthma, uncomplicated Plan: start Dupixent Coding Level of Care Code Established Pt Est Pt Level 1 (00140) Patient Type Established Diagnoses Severe persistent asthma without complication J45.50 Asthma complication type: uncomplicated Asthma persistence: persistent Asthma severity: severe Comment NURSE VISIT ONLY
== END 2024-12-09 11:00 | disposition home or self-care (01) ==
LOC: HO.HPS 09:11
PROVIDERS: PCP Internal Medicine; Visit Provider Hospitalist
DX: J45.50 Severe persistent asthma, uncomplicated (principal)

== ENCOUNTER → 2024-12-09 09:10 | Outpatient (BNVA) | payer OTHER, SELFPAY | PROVIDERS: PCP Internal Medicine; Visit Provider Hospitalist | DX: J45.50 Severe persistent asthma, uncomplicated (principal); Z71.89 Other specified counseling | CPT/HCPCS: 99211 ==

== ENCOUNTER 2024-12-24 08:39 | Outpatient (AMB) | payer OTHER, SELFPAY ==
[2024-12-24 09:01] VITALS: BP 100/62; PULSE 60; O2SAT 98
--- NOTE | 2024-12-24 09:01 | MHC.OFFVIS ---
Vital Signs 12/24/24 09:01 Height 5 ft 3 in BP 100/62 Blood Pressure Location Rt brachial Position Sitting Pulse 60 Pulse Source Pulse Oximeter Pulse Oximetry (%) 98 Oxygen Delivery Method Room Air Intake Visit Reasons: Dupixent Teach Allergies Penicillins Allergy (Severe, Verified 12/24/24 09:01) Hives erythromycin base Allergy (Unknown, Verified 12/24/24 09:01) Unknown opiods Allergy (Severe, Uncoded 12/24/24 09:01) Vomiting Medication List - Last Reconciled 12/24/24 by Nubia Hook LPN albuterol sulfate 0.63 mg inhalation Q4-6H PRN albuterol sulfate 90 mcg/actuation 2 puffs inhalation Q6H PRN albuterol sulfate 90 mcg/actuation 2 inhalations inhalation Q6H PRN 30 days budesonide 0.5 mg (2 mL) inhalation DAILY 30 days budesonide 0.5 mg (2 mL) inhalation BID 30 days doxycycline hyclate 100 mg PO BID 10 days dupilumab (Dupixent) 300 mg (2 mL) subcut Q2W 4 weeks dupilumab (Dupixent) 600 mg (4 mL) subcut ONCE 2 weeks epinephrine (EpiPen 2-Maximo) 0.3 mg (0.3 mL) IM Q10M PRN 30 days epinephrine (EpiPen 2-Maximo) 0.3 mg (0.3 mL) IM Q10M PRN 30 days kagxohxkmvq-naqurrkhu-bhuqogvu 200-62.5-25 mcg (Trelegy Ellipta) 1 ea inhalation DAILY montelukast (Singulair) 10 mg PO BEDTIME 90 days nebulizers As directed roflumilast (Daliresp) 250 mcg PO DAILY 30 days HPI Comments Details: Jyoti and her Grady are here for a Dupixent teach of the prefilled syringe. Kiaraclarissaalden was educated on hand washing, injection preparation, administration, and disposal.? He was able to return demonstrate proper technique for hand washing, injection preparation, administration and disposal of needle and states he has no questions at this time. Medication Dupixent 300mg/2mL pre-filled syringe (patient?s own meds) maintenance dose of 300mg given by the patient's spouse in 1 SQ injection to her R upper arm Lot# [id number] expires 10/2026. Patient aware her next injection is in 14 days. Nurse visit only.? [facility] Medical History (Updated 07/28/24 @ 22:32 by Ashok Doran MD) Pulmonary nodule Allergies [id number] syndrome Bronchitis Chronic cough Asthma Social History Patient Tobacco Use Status: Never used Tobacco Physical Exam Vital Signs: Last Vital Signs Pulse 60 12/24/24 09:01 BP 100/62 12/24/24 09:01 Pulse Ox 98 12/24/24 09:01 Oxygen Delivery Method Room Air 12/24/24 09:01 Assessment & Plan Assessment & Plan (1) Asthma: Code(s): J45.909 - Unspecified asthma, uncomplicated Category: Medical Qualifiers: Asthma complication type: uncomplicated Asthma persistence: persistent Asthma severity: severe Qualified Code(s): J45.50 - Severe persistent asthma, uncomplicated Plan Dupixent Coding Level of Care Code Established Pt Est Pt Level 1 (65684) Patient Type Established Diagnoses Severe persistent asthma without complication J45.50 Asthma complication type: uncomplicated Asthma persistence: persistent Asthma severity: severe Comment NURSE VISIT ONLY
== END 2024-12-24 08:57 | disposition home or self-care (01) ==
LOC: HO.HPS 08:39
PROVIDERS: PCP Internal Medicine; Visit Provider Hospitalist
DX: J45.50 Severe persistent asthma, uncomplicated (principal)

== ENCOUNTER → 2024-12-24 08:39 | Outpatient (BNVA) | payer OTHER, SELFPAY | PROVIDERS: PCP Internal Medicine; Visit Provider Hospitalist | DX: J45.50 Severe persistent asthma, uncomplicated (principal) | CPT/HCPCS: 99211 ==

== ENCOUNTER 2025-05-06 13:59 | Outpatient (AMB) | payer OTHER, SELFPAY ==
--- OUTSIDE RECORDS SUMMARY | 2021-07-27 17:25 | XMS_ITS | Encounter Summary ---
Author Organization [facility] Address [address] [place] [address] [place] [phone] Phone Care Team Providers Care General Adjuster Name Role Phone Garibay Radha Romero CNM Unavailable Mason Bush MD Unavailable Vero Tucker NP Unavailable Gerard Atkinson MD Unavailable Jonathon Maya PA-C Unavailable Martin Pulido MD Unavailable [phone] Jennifer Dimas DIRECTOR OF BUSINESS OPERATIONS Unavailable Jannie VazquezP Unavailable Padilla Al BALLAST REGULATOR OPERATOR Unavailable Jannie Vazquez [facility] Primary Care Provide r Chelsea Martinez MD, MPH Unavailable [phone] Encounter Details Date Type Department Care Team (Late st Contact Info) Description 07/27/2021 4:25 PM EST Hospital Encounter [facility] [address] [place] [id number] Olivia Saenz, BALLAST REGULATOR OPERATOR [address] [place] [phone] Social History Tobacco Use Types Packs/Day Years Used Date Smoking Tobacco: Never Passive Smoke Exposure: Never Smokeless Tobacco: Never Alcohol Use Standard Drinks/Week Comments Yes 1 (1 standard drink = 0.6 oz pur e alcohol) Usually less than once a week Child or Family Care Answer Date Record ed Do you have problems with on e of the following making it difficult for you to work, study, or receive health care? No 08/23/2024 Education Answer Date Recorded Are you interested in help w ith more adult education (for example, completing high school, GED, job training, learning the Lao language, technical skills, or developing parenting skills)? No 08/23/2024 Are you concerned about learning? Not on file 08/23/2024 No 08/23/2024 Yes 08/23/2024 Food Answer Date Recorded Within the past 6 months we worried whether our food would run out before we got money to buy more. Never True 08/23/2024 Within the past 6 months the food we bought just didn't last and we didn't have enough money to get more. Never True Residential Stability Answer Date Recor ded What is your housing situation today? I have malka sing 08/23/2024 How many times have you move d in the past 12 months? Zero (I did not move) 08/23/2024 Paying for Meds Answer Date Recorded Do you have trouble paying for medicines? No 08/23/2024 Paying Utility Bills Answer Date Record ed Do you have trouble paying your heating or elect ricity bill? No 08/23/2024 Transportation Answer Date Recorded Has the lack of transportati on kept you from medical appointments or from getting medications? No 08/23/2024 Unemployment Answer Date Recorded Are you currently unemployed or working on a part-time or temporary basis, and looking for work? No 09/18/2022 Digital Access Answer Date Recorded No 08/23/2024 Yes 08/23/2024 Do you have reliable internet access at home? Ye s 08/23/2024 Do you have a device (e.g., phone, tablet, computer) with a working camera? Yes 08/23/2024 Intimate Partner Violence Answer Date R ecorded Denied Basic Needs Not on file 08/23/2024 In the past 12 months have y ou been in a relationship with a person who hurts, threatens, or tries to control you? No 08/23/2024 Worried food would run out Not on file 08/23 In the past 12 months have y ou been in a relationship with a person who hurts, threatens, or tries to control you? 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 file Not on file Not on file documented as of this encounter Plan of Treatment Upcoming Encounters Date Type Department Care Team (Late st Contact Info) Description 07/03/2024 Procedure Pass [address] [id number] 07/23/2025 4:00 PM EST Appointment [address] [address] Mason Bush MD [address] [place] [address], [address] [place] [address] [email or web address] documented as of this encounter Procedures Procedure Name Priority Date/Time Associated Diagnosis Comments XR CHEST PA AND LATERAL 2 VIEWS Urgent/patient waiting 07/27/2021 4:39 PM EST Shortness of breath documented in this encounter Results * XR CHEST PA AND LATERAL 2 VIEWS (07/27/2021 4:39 PM EST) Anatomical Region Laterality Modality Chest Computed Radiogr aphy 07/27/2021 4:44 PM EST Impressions 07/27/2021 4:49 PM EST No acute abnormality. ATTESTATION: I, Dutch Combs as teaching physician, have reviewed the images for this case and if necessary edited the report originally created by Otto Giraldo. Narrative 07/27/2021 4:49 PM EST XR CHEST PA AND LATERAL 2 VIEWS COMPARISON: XR CHEST PA AND LATERAL 2 VIEWS 2017- FINDINGS: Devices/Tubes/Lines: None. Lungs: Similar area of scarring projecting over the lateral right lung compared to prior chest x-ray dated October 07, 2017. The lungs are clear. No focal consolidation or pulmonary edema. Pleura: No pleural effusion or pneumothorax. Heart/Mediastinum: The heart and mediastinum are normal. Bones/Soft Tissues: No significant skeletal abnormality. Procedure Note Dutch Combs MD - 07/27/2021 XR CHEST PA AND LATERAL 2 VIEWS COMPARISON: XR CHEST PA AND LATERAL 2 VIEWS 2017- FINDINGS: Devices/Tubes/Lines: None. Lungs: Similar area of scarring projecting over the lateral right lungcompared to prior chest x-ray dated October 07, 2017. The lungs areclear. No focal consolidation or pulmonary edema. Pleura: No pleural effusion or pneumothorax. Heart/Mediastinum: The heart and mediastinum are normal. Bones/Soft Tissues: No significant skeletal abnormality. IMPRESSION: No acute abnormality. ATTESTATION: I, Dutch Combs as teaching physician, have reviewed theimages for this case and if necessary edited the report originally createdby Otto Giraldo. Olivia Saenz BALLAST REGULATOR OPERATOR IMG XR CHEST Final Resul t documented in this encounter Visit Diagnoses Not on filedocumented in this encounter Additional Health Concerns Infection Onset Date Last Indicated Resolved Time CoV-Risk 07/18/2021 07/27/2021 08/06/2021 1:21 AM EST CoV-Risk Comment:Per Ambulatory Triage Form 08/28/2021 09/02/202109/03 4:05 AM EST COVID-19 09/02/2021 09/02/2021 09/23/2021 1:22 AM EST CoV-Risk 11/18/2021 11/18/2021 11/29/2021 1:21 AM EDT CoV-Risk 12/15/2021 12/15/2021 12/26/2021 1:22 AM EDT CoV-Presumed 01/31/2022 01/31/2022 02/21/2022 1:22 AM EDT CoV-Risk 02/09/2022 02/09/2022 02/20/2022 1:24 AM EDT CoV-Risk 05/28/2022 05/28/2022 06/08/2022 1:22 AM EDT CoV-Risk 07/11/2022 07/11/2022 07/22/2022 3:51 AM EST CoV-Risk 06/12/2023 06/12/2023 06/23/2023 1:23 AM EDT CoV-Risk 08/01/2024 08/01/2024 08/12/2024 1:21 AM EST documented as of this encounter Care Teams General Adjuster Relationship Specialty Start Date End Date Jannie Vazquez FNP [address] [place] [id number] PCP - General 09/12/17 08/27/21 Radha Garibay CNM [address] [place] [address] Historical LMR Provider 06/10/17 2 Mason Bush MD [address] [place] [address] Historical LMR Provider 06/10/17 Vero Tucker NP [address] [place] [address] [email or web address] Historical LMR Provider 06/10/17 09/02/21 Gerard Atkinson MD [address] [place] [address] Historical LMR Provider 06/10/17 Jonathon Maya PA-C [address] [facility], [facility] [place] [address] Historical LMR Provider 06/10/17 Martin Pulido MD [address] [facility] [place] [address] Historical LMR Provider 06/10/17 09/02/21 Jennifer Dimas NP [address] [place] [address] Historical LMR Provider 06/10/17 Jannie Vazquez FNP [address] [place] [address] Historical LMR Provider 06/10/17 Padilla Al CNP [address] [facility] [place] [address] Historical LMR Provider 06/10/17 Chelsea Martinez MD, MPH [address] [facility] [address] [place] [address] Insurance Assigned Provider 03/04/2105/04 documented as of this encounter Additional Source Comments The information contained in this document represents components of the legal health record. It is not the complete legal health record.[facility]
[2025-05-06 14:01] VITALS: BP 100/62; PULSE 78; O2SAT 97; BMI 29.1
--- NOTE | 2025-05-06 14:01 | MHC.OFFVIS ---
Vital Signs 05/06/25 14:01 Height 5 ft 3 in Weight 164 lb 3.91 oz BMI 29.1 BP 100/62 Blood Pressure Location Lt brachial Position Sitting Pulse 78 Pulse Source Pulse Oximeter Pulse Oximetry (%) 97 Oxygen Delivery Method Room Air Intake Visit Reasons: Discuss Dupixent Side Effects Acid Correction Hand Required: No Accompanied by: Self / Same As Patient Allergies Penicillins Allergy (Severe, Verified 05/06/25 14:04) Hives erythromycin base Allergy (Unknown, Verified 05/06/25 14:05) Unknown dupilumab (From Dupixent Pen) Adverse Reaction (Intermediate, Verified 05/06/25 21:25) Joint Pain opiods Allergy (Severe, Uncoded 12/24/24 09:01) Vomiting HPI Comments Details: The patient is a 49-year-old woman who was previously healthy until back beginning of the year when she she developed COVID-19. The patient did have significant respiratory complaints. Ultimately she recovered from COVID although she continued to have a worsening cough. The cough is productive in nature. Moderate severity. She also has significant wheezing. She was evaluated by pulmonology elsewhere. Partly workup included pulmonary function studies. In addition to that she had a chest x-ray without any acute disease. However she continues to require multiple courses of prednisone. Significant chest tightness and wheezing. She does have a nebulizer that she uses regularly. She did have a scare where her and mucus usually does up at nighttime she has a hard time expectorating. All of a sudden she felt she could not breathe and felt like she was going to . The patient ultimately was able to clear the mucus and ultimately was able to feel better. However, she does struggle because her symptoms do worsen at nighttime. In the office she did have significant rhonchi and wheezing. She was provided with 2 Xopenex treatments and also hypertonic saline. We were able to get a sputum culture sent to the laboratory. In the meantime she continues to have significant respiratory symptoms even on maximum respiratory therapy. She has been on Advair now for multiple months. Will go ahead and increase that over to Trelegy. I do believe that she will do better with nebulized therapies and the addition of budesonide in the meantime will be helpful to try to minimize systemic steroids. Patient will need blood work and ultimately if she still continues to have uncontrolled asthma then can consider biologic therapies. In addition to that based on the fact that she already had a chest x-ray and a pulmonary function study in continues to be symptomatic without a clear explanation go ahead and request a CT scan of the chest to assess for any bronchiectatic changes or any evidence of any pneumonitis. 11/13/2022 the patient is here for a pulmonary follow-up visit. The patient has had a tough several months. She had issues with her daughter who became gravely ill after an allergic reaction and then had to switch insurance. She ultimately was responding very well to the Trelegy inhaler. Her symptoms improved dramatically. A she was not requiring her rescue inhaler. Unfortunately then the insurance change though could not be filled. We did try to a prior approval but it was still not able to be filled. It was recommended that she start Breo and Incruse. Therefore explained to her that same medicine but taking separate inhalers and I will go ahead and send the script. In the meantime since she had not had the medication her wheezing became worse her coughing also worsen with mucus production. We did talk about her a lab work demonstrating an elevated IgE level of greater than 2000. We did talk about different biologic regimens that may be effective for her. In the meantime with her significant wheezing she may also need more prednisone. She just finished a course of prednisone last week. I will give her more prednisone for her to have. Her mucus is yellowish in color. Likely may have a little infection. Will go ahead and send her some Levaquin to see if we can treat her for enteric bacteria. As patient is not better we can always request a sputum culture to sent for further analysis. We did review also her CT scan demonstrating a calcified pulmonary nodule in the right upper lobe that she has had before otherwise no other significant findings noted. I do believe with her severe asthma symptoms and findings along with her significant allergic asthma she will be a great candidate for biologic therapy. In view of her severe allergy reactions I also provided with an EpiPen. She was also given instructions on how to use it effectively. 07/23/2023 the patient is here for pulmonary follow-up visit. Overall the patient is doing better but seems that she did better on the Trelegy then the Breo and Incruse combination. Therefore will go ahead and switch her back to Trelegy is this is more effective when she used the medications in 1 device. The patient does still have significant asthma although at this point she has had a better baseline. She has constant daily wheezing. She is also demonstrating some eczema. She has had allergy testing in the past with significantly elevated IgE levels. Therefore again we did talk about biologic therapies. She will benefit from biologic therapies to improve her symptoms overall. She still rather stay away from biologic therapies if she can avoid it. Will go ahead and recheck her blood work sometime in the springtime prior to the next visit so therefore we can address the question again. The patient may also benefit from allergy shots to try time modulated her immune response to the allergens in the future. 07/28/2024 the patient is here for a pulmonary follow-up visit. Overall she is doing fair. She responded well to the Trelegy and she is also using the singular. She is trying to exercise regularly and she is trying to minimize allergy exposure. Still though she still has a hard time breathing at times. She has needed some prednisone here and there for exacerbations. The last time we did blood work her IgE level significantly elevated and her CBC with differential demonstrated a neutrophilic predominant. On examination the patient continues to have significant wheezing and rhonchi. She is working closely with reflux disease and she is feels that minimizing her reflux has improve her overall breathing. I do believe that this plays a big role although I do believe that she also has a significant allergic component. Therefore based on the fact that she is not completely responding to Trelegy will go ahead and request blood work. In addition to that I did review her last CT scan of the chest back in 2021 which she had evidence of granulomas suggesting of granulomas related diseases. Therefore the blood work will also include a T spot to make sure that there isn't any history of latent tuberculosis. Depending on the blood work will talk about biologics. I do believe the patient is a great candidate for biologics at this time specially since she has tried and failed all inhalers as she continues to be symptomatic even on Trelegy and she continues to require prednisone on a regular basis. 11/02/2024 the patient is here for a pulmonary follow-up visit. Since we last spoke she was exposed to the flu and she developed flu-like symptoms. Her daughter tested positive for flu A. She never did test. She did continues take her medications as prescribed. In she continued to have a cough that has been lingering. She feels some heaviness of the chest moderate severity. She now is wondering about taking something to make the symptoms improved. She has significant rhonchi and wheezing on exam and diminished breath sounds along with prolonged expiratory phase. Will go ahead and order prednisone for her and also she can start doxycycline for postviral bacterial bronchitis. In the meantime the patient does continue with the Trelegy. She continues to have symptoms on a regular basis and she has a significantly elevated IgE. The patient also has an elevated eosinophil count. Will go ahead and start her on Dupixent as the very good option to treat her severe persistent asthma with frequent exacerbations, her dermatitis at this time. 05/06/2025 the patient is here for a pulmonary follow-up visit. Overall she is doing okay although she was starting to develop significant arthralgias and tendonitis. Finally she realize that the Dupixent was causing her to have significant arthralgias and discomfort. Since she stopped it the symptoms have subsided some but she still has some discomfort primarily in the morning but also at nighttime. Sometimes she was has a hard time walking because of the discomfort. The patient does have significant allergies in the Dupixent did help her breathing significantly. However, now that she is off it her symptoms are likely to come back. The patient does have significant allergic related asthma. Since she did not tolerate the Dupixent she is a good candidate for Xolair. Will go ahead and request additional blood work to assess the correct dose of Xolair and will be able to discontinue the Dupixent and put it and her allergies. As far as inhalers the patient had been on Trelegy but was causing her to have heartburn and reflux. Therefore she would like to avoid that. I do believe Symbicort be a better option for her. Will send it over to the pharmacy. The patient will follow-up in about 6-8 months. Hopefully we can get her on Xolair soon where she can started and then will make sure her EpiPen is up-to-date. I did have her have additional nursing teaching for her epi administration if ever needed. I will send her an updated prescription to the pharmacy as well. If the patient has any other issues or concerns she can always call for further recommendations. 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 Bronchitis Chronic cough Asthma Social History Patient Tobacco Use Status: Never used Tobacco Review of Systems Const Reports difficulty sleeping Eyes Denies change in vision ENT Reports nasal congestion, Reports nasal discharge and Reports post nasal drip Card Denies chest pain and Denies dyspnea Resp Denies chest congestion, Reports cough, Denies dyspnea and Denies wheezing GI Reports dyspepsia and Reports heartburn Musc Reports as per HPI, Reports myalgias and Reports arthralgias Skin/Breast Reports rash Neuro Reports no additional complaints Psych Reports no additional complaints Endo Denies flushing Tomasz/Lymph Denies easy bleeding Aller/Immun Denies wheezing Physical Exam Vital Signs: Last Vital Signs Pulse 78 05/06/25 14:01 BP 100/62 05/06/25 14:01 Pulse Ox 97 05/06/25 14:01 Oxygen Delivery Method Room Air 05/06/25 14:01 BMI result Body Mass Index 29.1 Assessment & Plan Assessment & Plan (1) Asthma: Code(s): J45.909 - Unspecified asthma, uncomplicated Category: Medical Qualifiers: Asthma complication type: uncomplicated Asthma persistence: persistent Asthma severity: severe Qualified Code(s): J45.50 - Severe persistent asthma, uncomplicated (2) Allergies: Code(s): T78.40XA - Allergy, unspecified, initial encounter Category: Medical Qualifiers: Encounter type: subsequent encounter Qualified Code(s): T78.40XD - Allergy, unspecified, subsequent encounter (3) Arthralgia: Code(s): M25.50 - Pain in unspecified joint Category: Medical Qualifiers: Joint pain location: unspecified Qualified Code(s): M25.50 - Pain in unspecified joint (4) Chronic cough: Code(s): R05.3 - Chronic cough Category: Medical (5) Pulmonary nodule: Comment: calcified consistent with a granuloma Code(s): R91.1 - Solitary pulmonary nodule Category: Medical Plan stop Trelegy 200 start Symbicort stop Dupixent due to adverse reaction start Xolair, requesting IgE levels to calculate dose Singulair Acapella valve for CPT Epipen, reteaching provided follow-up in 3-4 months Orders: Orders Immunoglobulin E Today J45.50 - Severe persistent asthma, uncomplicated, T78.40XD - Allergy, unspecified, subsequent encounter Cyclic Citrullinated Peptide Today J45.50 - Severe persistent asthma, uncomplicated, T78.40XD - Allergy, unspecified, subsequent encounter Erythrocyte Sedimentation Rate Today J45.50 - Severe persistent asthma, uncomplicated, T78.40XD - Allergy, unspecified, subsequent encounter Medications: New budesonide-formoterol 160-4.5 mcg/actuation (Symbicort) 2 puffs inhalation BID 10.2 grams 11RF 30 days J44.89 - Other specified chronic obstructive pulmonary disease Refilled epinephrine (EpiPen 2-Maximo) for 2 doses 0.3 mg (0.3 mL) IM Q10M PRN 2 ea 6RF anaphylaxis 30 days J45.40 - Moderate persistent asthma, uncomplicated Discontinued budesonide Discontinued Reason: Doctor's Order 0.5 mg (2 mL) inhalation DAILY 30 days 60 mL 11RF J44.9 - Chronic obstructive pulmonary disease, unspecified budesonide Discontinued Reason: Doctor's Order 0.5 mg (2 mL) inhalation BID 30 days 120 mL 11RF J44.9 - Chronic obstructive pulmonary disease, unspecified dupilumab (Dupixent) Maintenance dose Discontinued Reason: Doctor's Order 300 mg (2 mL) subcut Q2W 4 weeks 4 mL 11RF J45.50 - Severe persistent asthma, uncomplicated dupilumab (Dupixent) Loading dose Discontinued Reason: Doctor's Order 600 mg (4 mL) subcut ONCE 2 weeks 4 mL 0RF Coding Level of Care Code Est Pt Level 4 (97252) Diagnoses Severe persistent asthma without complication J45.50 Asthma complication type: uncomplicated Asthma persistence: persistent Asthma severity: severe Allergy, subsequent encounter T78.40XD Encounter type: subsequent encounter Arthralgia, unspecified joint M25.50 Joint pain location: unspecified Chronic cough R05.3 Pulmonary nodule R91.1 Time Spent (min) 17
--- OUTSIDE RECORDS SUMMARY | 2025-05-06 17:50 | XMS_ITS | Clinical Summary ---
Author Organization [facility] Address [address] [place] [address] Phone Care Team Providers Care Camp Dishwasher Name Role Phone Mason Bush MD Unavailable Jonathon Maya PA-C Unavailable [phone] Jannie Vazquez Unavailable Chelsea Martinez MD, MPH Primary Care Provid er Allergies Active Allergy Reactions Criticality Noted Date Comments Azithromycin Other (See Comments) 07/18/2021 Pt reports azithromycin does not work for her Sulfamethoxazole-Trimetho prim Wheezing 04/22/2017 Codeine Nausea and/or Vomiting 09/12/2017 House Dust Mite 08/24/2024 Diethyltoluamide 04/23/2021 Penicillin Hives 04/22/2017 Medications albuterol 90 mcg/actuation inhaler Inhale 2 puffs into the lungs every 4 (four) hours as needed for wheezing. 18 g 5 3 Active TRELEGY ELLIPTA 200-62.5-25 mcg inhaler Inhale 1 puff into the lungs daily. 3 Active EPINEPHrine 0.3 mg/0.3 mL auto-injector 3 Active omeprazole (PRILOSEC) 20 MG capsuleIndicatio ns:Reflux gastritis Take 1 capsule (20 mg total) by mouth daily. 28 capsule 3 Active Additional Information Patient not taking.Reported on 01/15/2025 DUPIXENT SYRINGE 300 mg/2 mL subcutaneous syringe Inject 300 mg under the skin every 14 (fourteen) days. 5 Active JUBLIA 10 % Caren APPLY TOPICALLY DAILY TO AFFECTED TOENAILS X 48 WEEKS 8 mL 1 5 Active Active Problems Problem Noted Date Diagnosed Date Vegan diet 06/02/2022 Assessment & Plan (06/02/2022 3:02 PM EDT): Taking B12, no monitoring needed. Lung nodule 01/30/2022 History of loop electrical excision procedure (L EEP) 10/08/2019 Severe persistent asthma without complication Assessment & Plan (01/07/2024 1:58 PM EDT): Glad to hear this has improved. Assessment & Plan (07/22/2022 9:21 PM EST): I question whether asthma is the only issue here given lack of adequate response to medications and normal pulmonary exam in setting of ongoing symptoms. I appreciate input of pulmonology at her upcoming visit. Given rapid onset of breathing restriction, I think need to consider vocal chord dysfunction. I also think she needs a cardiac echo. Assessment & Plan (06/02/2022 3:02 PM EDT): She is still not well controlled and clearly in a fairly active state right now but she does not want to take prednisone unless she feels she needs it. She does have some. Strongly encouraged finding a contact center analyst she feels comfortable with as she needs to be followed regularly. She is in agreement. Can trial plain guaifenesin for mucous management. Assessment & Plan (04/25/2021 2:35 PM EDT): It's not totally clear to me on what grounds this was considered to be bacterial but she reports that she is improving on the Levaquin, which is the important thing. She does not want any additional cough medicine prescriptions and as both [id number]-cmf-[id number] and prescription cough medicines are not all that effective, I think that is totally appropriate. She is very aware of how to manage her symptoms with extra pillows and other home remedies. It is certainly possible that the body aches are from prednisone withdrawal or a could just be the result of what ever infection she has right now again, as long as they are improving I am not concerned. As her job involves a lot of talking, I recommend she stay home until she feels like she can do this work without coughing a lot or feeling short of breath. She is now more than 24 hours into her second antibiotic and I am not concerned about her being contagious so returned to work is at her discretion based on symptoms and functionality. Probably it will be a few days. 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 Last pap with HGSIL and HPV 16 pos. LEEP performed 11/27/2018 Resolved Problems Problem Noted Date Diagnosed Date Resolved Date Cervical dysplasia 09/12/2017 8 Overview (09/25/2017): GM II 2013, HPV 16 pos 2015 with neg colpo bx. Assessment & Plan (09/12/2017 1:19 PM EST): GM 2 2013, pap NIL +HPV 16 9/16, 12/16 colpo benign. Needs follow up Smoker 03/13/1999 10/18/2020 Overview (10/16/2014): CURRENT SMOKER 1 pk/1-2 months Abnormal Pap smear of cervix 11/07/2017 Overview (11/05/2017): 08/2017 ASCUS HPV High Risk Negative ( +16/18) Abnormal Pap smear of cervix 11/07/2017 Overview (11/05/2017): 08/2017 ASCUS HPV High Risk Negative ( +16/18) Encounters Date Type Department Care Team Description 02/19/2025 Refill [facility] [address] [facility] [address] [place] [address] Chelsea Martinez MD, MPH Medication Refill from Last 3 Months Immunizations Immunization Administration Dates Next Due COVID-19 (Pre-06/17) Pfizer Vaccine, mRNA, PF Tdap 01/25/2019 Family History Medical History Relation Comments Asthma Daughter 1 Bipolar disorder Father Heart attack Maternal Grandfather multiple, f irst likely in his 70s Diabetes Maternal Grandmother No Known Problems Mother Breast cancer Paternal Grandmother Relation Status Comments Daughter 1 Alive Daughter 2 Alive Father Alive Maternal Grandfather Maternal Grandmother Mother Alive Paternal Grandfather Alive Paternal Grandmother Alive Son Alive Social History Tobacco Use Types Packs/Day Years Used Date Smoking Tobacco: Never Passive Smoke Exposure: Never Smokeless Tobacco: Never Tobacco Cessation:Counseling Given: Not Answered Alcohol Use Standard Drinks/Week Comments Yes 1 [...] high school, GED, job training, learning the Surinamese language, technical skills, or developing parenting skills)? [...] your housing situation today? 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 Not on file Not on file Last Filed Vital Signs Vital Sign Reading Time Taken Comments Blood Pressure 122/72 01/15/2025 2:27 PM EDT Pulse 76 01/15/2025 2:27 PM EDT Temperature 36.6 C (97.9 F) 08/01/2024 10:05 AM EST Respiratory Rate 17 08/01/2024 10:05 AM EST Oxygen Saturation 99% 01/15/2025 2:27 PM EDT Inhaled Oxygen Concentration - - Weight 74.8 kg (165 lb) 08/01/2024 10:05 AM EST Height 160 cm (5' 3 ) 01/15/2025 2:27 PM EDT Body Mass Index 29.23 08/01/2024 10:05 AM EST Plan of Treatment Upcoming Encounters Date Type Department Care Team (Late st Contact Info) Description 07/03/2024 Procedure Pass [address] [address] 07/23/2025 4:00 PM EST Appointment [address] [address] Mason Bush MD [address] [place] [address], [address] [place] [address] [email or web address] Health Maintenance Due Date Last Done Comments LIPID PANEL 1975 HEPATITIS C SCREENING 1995 HIV ONE-TIME SCREENING (18-65 YEARS) 1995 PNEUMOCOCCAL VACCINES (0-49 years) (1 of 2 - PCV) 1996 SCREENING FOR DIABETES 07/11/2022 07/11/2019 COLOGUARD 2022 COLONOSCOPY 2022 COLORECTAL CANCER SCREENING 2022 FIT TEST 2022 FOBT 2022 SIGMOIDOSCOPY 2022 VIRTUAL COLONOSCOPY 2022 INFLUENZA VACCINE (#1) 2025 COVID-19 VACCINE ( season) 2025 12/15/2020, 11/22/2020 PAP SMEAR 07/03/2025 07/03/2024, 09/27, 10/08/2019, Additional history exists MAMMOGRAM 08/09/2025 08/09/2023 DEPRESSION SCREENING 08/23/2025 08/23/2024 Adult Td,Tdap Booster 01/25/2029 01/25/2019 SMOKING STATUS SCREENING (Once After 26 Yrs) Completed 01/15/2025 HEPATITIS A VACCINES Aged Out No long er eligible based on patient's age to complete this topic HIB VACCINES Aged Out No longer eligi ble based on patient's age to complete this topic MENINGOCOCCAL VACCINES (ACWY) Aged Out No longer eligible based on patient's age to complete this topic MENINGOCOCCAL VACCINES (B) Aged Out N o longer eligible based on patient's age to complete this topic Medical Devices Not on file Procedures Procedure Name Priority Date/Time Associated Diagnosis Comments PAP TEST Routine 07/03/2024 12:00 AM EST BI MAMMOGRAM SCREENING WITH TOMOSYNTHESIS WITH CAD (BILATERAL) Routine 08/09/2023 1:51 PM EST Encounter for screening mammogram for malignant neoplasm of breast from Last 3 Months or Most Recently Relevant to Health Maintenance Results * Pap Test (07/03/2024 12:00 AM EST) 07/03/2024 07/06/2024 10: 26 AM EST Narrative SEE NARRATIVE - 07/20/2024 9:03 [place] [address] Laboratory Scientist: Martin Fontana MD FAUCET POLISHER Cytology Report FINAL DIAGNOSIS A. PAP SMEAR (THIN PREP) CE: SPECIMEN ADEQUACY: Satisfactory for evaluation; transformation zone present. INTERPRETATION: NEGATIVE FOR INTRAEPITHELIAL LESION OR MALIGNANCY. This specimen was analyzed by the automated ThinPrep Imaging System ([employer] and manually rescreened by a counter hand and/or pathologist. Electronically Signed Out By: KALLIE Cheng(ASCP) The Pap test is a screening test primarily for squamous cancers and precursors and has associated false-negative and false-positive results. New technologies such as liquid-based preparations may decrease but will not eliminate all false-negative results. Regular sampling and follow-up of unexplained clinical signs and symptoms are recommended to minimize false negative results. PROCEDURES/ADDENDA HPV Testing (Requested) Ordered Date: 07/15/2024 A. PAP SMEAR (THIN PREP) CE: High-risk HPV Panel w/ extended genotyping NEG HPV 16-NEG HPV 18-NEG HPV 45-NEG HPV 33/58-NEG HPV 31-NEG HPV 56/59/66-NEG HPV 51-NEG HPV 52-NEG HPV 35/39/68-NEG Performed by real-time polymerase chain reaction (PCR) at [facility], [address] [place] [address], [place], [place] using the FDA-approved BD Onclarity9 HPV Assay with extended genotyping. Uses of the assay in scenarios other than those approved by the FDA should be considered off-label use. The accuracy and precision of this test for all other off-label specimen sources has been verified in the Cytopathology Laboratory of the [facility] and has not been cleared or approved by the U.S. Food and Drug Administration. Clinical correlation is advised. The assay assesses the E6/E7 DNA target and utilizes human beta globin as an internal control. Cytology and HPV testing are screening assays and should not be used as the sole means of detecting cancer. False-positives and false-negatives can occur. CLINICAL HISTORY Date of Last Menstrual Period: 06-28-2024 Treatment History: LEEP: 2019 Other Clinical Conditions: Screening Pap SPECIMEN SOURCE A: PAP SMEAR (THIN PREP) CE Patient Name: JYOTI BRUNNER : 1975 (Age: 48) Sex: F Institution: [facility] Location: [facility] Date of Collection: 07/03/2024 Date of Reported: 07/09/2024 16:18 Results to: Mason Bush MD Mason Bush MD CYTOLOGY ORDERABLES Edited Resul t - Final SEE NARRATIVE * BI MAMMOGRAM SCREENING WITH TOMOSYNTHESIS WITH CAD (BILATERAL) (08/09/2023 1:51 PM EST) Anatomical Region Laterality Modality Breast Left, Breast Right, Breast Bilateral Bila teral Mammography 08/12/2023 12:4 0 PM EST Impressions 08/12/2023 12:44 PM EST No mammographic signs of malignancy. Annual screening is recommended. BI-RADS CATEGORY: 1 - Negative. DENSITY: There are scattered fibroglandular densities. Annual screening Narrative 08/12/2023 12:44 PM EST Bilateral mammography is performed in conjunction with computed aided detection. 3-D tomography along with 2-D C view imaging was also performed. This is a baseline mammogram. No suspicious masses, areas of architectural distortion or suspicious microcalcifications. Procedure Note Compa Weber MD - 08/12/2023 Bilateral mammography is performed in conjunction with computed aideddetection. 3-D tomography along with 2-D C view imaging was alsoperformed. This is a baseline mammogram. No suspicious masses, areas of architectural distortion or suspiciousmicrocalcifications. IMPRESSION: No mammographic signs of malignancy. Annual screening is recommended. BI-RADS CATEGORY: 1 - Negative. DENSITY: There are scattered fibroglandular densities. Annual screening Chelsea Martinez MD, MPH IMG MG EXAMS Eloise l Result from Last 3 Months or Most Recently Relevant to Health Maintenance Insurance HEALTH SAFETY NET FULL Member Subscriber Plan / Payer (Ef fective 2024-Present) Name:Jyoti Brunner Relation to Subscriber:Self Name:Jyoti Brunner Payer ID:Not on file Group ID:Not on file Type:Medicaid Address: [address] DIRECT HEALTH SAFETY NET FULL Member Subscriber Plan / Payer (Ef fective 2024-Present) Name:Jyoti Brunner Relation to Subscriber:Self Name:Jyoti Brunner Payer ID:Not on file Group ID:Not on file Type:Medicaid Address: [address] [employer] HEALTH SAFETY NET FULL Member Subscriber Plan / Payer (Ef fective 2024-Present) Name:Jyoti Brunner Relation to Subscriber:Self Name:Jyoti Brunner Payer ID:Not on file Group ID:Not on file Type:Medicaid Address: [address] [employer] DIRECT HE[employer] SAF[employer] NET FULL Member Subscriber Plan / Payer (Ef fective 2024-Present) Name:Jyoti Brunner Relation to Subscriber:Self Name:Jyoti Brunner Payer ID:Not on file Group ID:Not on file Type:Medicaid Address: [address] [employer] DIRECT HE[employer] SAF[employer]Y NET FULL Member Subscriber Plan / Payer (Ef fective 2024-Present) Name:Jyoti Brunner Relation to Subscriber:Self Name:Jyoti Brunner Payer ID:Not on file Group ID:Not on file Type:Medicaid Address: [address] [employer] DIRECT HEALTH SAF[employer]Y NET FULL [facility] DIRECT Care Teams Camp Dishwasher Relationship Specialty Start Date End Date Chelsea Martinez MD, MPH [address] [place] [address] [address] [place] [address] [email or web address] PCP - General Family Medicine 08/28/21 Mason Bush MD [address] [place] [address], [address] [place] [address] [email or web address] Historical LMR Provider 06/10/17 Jonathon Maya PA-C [address] [place] [address] Orthopedics & Sports Medicine, [place] [address] Historical LMR Provider 06/10/17 Jannie Vazquez FNP [address] [place] [address] [email or web address] Historical LMR Provider 06/10/17 Additional Source Comments The information contained in this document represents components of the legal health record. It is not the complete legal health record.[facility]
--- OUTSIDE RECORDS SUMMARY | 2025-05-06 17:50 | XMS_ITS | Encounter Summary ---
Author Organization [facility] Address [facility] [employer] [facility] [address] [place] [address] Phone Care Team Providers Care Substance Addiction Coordinator Name Role Phone Mason Bush MD Unavailable Jonathon Maya PA-C Unavailable [phone] Jannie Vazuqez Unavailable Chelsea Martinez MD, MPH Primary Care Provid er Encounter Details Date Type Department Care Team (Late st Contact Info) Description 12/07/2024 Procedure Pass [facility] Endoscopy Admitting Dept Virtual Department [address] [place] [address] Social History Tobacco Use Types Packs/Day Years [...] high school, GED, job training, learning the Italian language, technical skills, or developing parenting skills)? 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 Not on file Not on file documented as of this encounter Plan of Treatment Upcoming Encounters Date Type Department Care Team (Late st Contact Info) Description 07/03/2024 Procedure Pass [facility], [address] [address] 07/23/2025 4:00 PM EST Appointment [address] [address] Mason Bush MD [address] [place] [phone] documented as of this encounter Visit Diagnoses Not on filedocumented in this encounter Additional Health Concerns Assessment Noted Time PHQ-2 Depression Total Score: 0 08/23/20 24 2:33 PM EST documented as of this encounter Care Teams Substance Addiction Coordinator Relationship Specialty Start Date End Date Chelsea Martinez MD, MPH [address] [address] PCP - General Family Medicine 08/28/21 Mason Bush MD [address] [place] [address] Historical LMR Provider 06/10/17 Jonathon Maya PA-C [address] [place] [address] Orthopedics & Sports Medicine, [facility] [place] [address] Historical LMR Provider 06/10/17 Jannie Vazquez FNP [address] [place] [address] Historical LMR Provider 06/10/17 documented as of this encounter Additional Source Comments The information contained in this document represents components of the legal health record. It is not the complete legal health record.[facility]
--- OUTSIDE RECORDS SUMMARY | 2025-05-06 17:50 | XMS_ITS | Encounter Summary ---
Author Organization [facility] Address [address] [place] [address] Phone Care Team Providers Care Continuous Dryout Operator Helper Name Role Phone Radha Garibay CNM Unavailable Mason Bush MD Unavailable Vero Tucker NP Unavailable [phone] Gerard Atkinson MD Unavailable Jonathon Maya PA-C Unavailable [phone] Martin Pulido MD Unavailable [phone] Jennifer Dimas BICYCLE REPAIRMAN Unavailable Jannie Vazquez [facility] Unavailable [phone] Padilla Al CNP Unavailable [phone] Jannie Vazquez [facility] Primary Care Provide r Talib Ugalde MD Unavailable [phone] Greg Godoy MD Unavailable [phone] Greg Godoy MD Unavailable [phone] Chelsea Martinez MD, MPH Unavailable [phone] Chelsea Martinez MD, MPH Primary Care Provid er Encounter Details Date Type Department Care Team (Late st Contact Info) Description 01/10/2018 Transcribe Orders [facility] [address] [place] [address] Jannie Vazquez FNP [address] [place] [address] [email or web address] Social History Tobacco Use Types Packs/Day Years Used Date Smoking Tobacco: Never Smokeless Tobacco: Never Alcohol Use Standard Drinks/Week Comments Yes 0 (1 standard drink = 0.6 oz pur e alcohol) rare Comments No Sex and Gender Information Value Date Recorded Sex Assigned at Female 09/22/2017 1:36 PM EST Legal Sex Female 9:26 PM EDT Gender Identity Female 09/22/2017 1:36 PM EST Sexual Orientation Straight 09/22/2017 1: 36 PM EST 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 Not on file Not on file documented as of this encounter Plan of Treatment Upcoming Encounters Date Type Department Care Team (Late st Contact Info) Description 07/03/2024 Procedure Pass [address] [address] 07/23/2025 4:00 PM EST Appointment [address] [address] Mason Bush MD [address] [place] [address], [facility] [address] [place] [address] [email or web address] documented as of this encounter Visit Diagnoses Not on filedocumented in this encounter Additional Health Concerns Infection Onset Date Last Indicated Resolved Time CoV-Risk 11/15/2020 11/15/2020 11/25/2020 1:23 AM EDT CoV-Risk 04/18/2021 04/18/2021 04/28/2021 1:23 AM EDT CoV-Risk 07/18/2021 07/27/2021 08/06/2021 1:21 AM EST [...] documented as of this encounter Care Teams Continuous Dryout Operator Helper Relationship Specialty Start Date End Date Jannie Vazquez FNP [address] [place] [address] [email or web address] PCP - General 09/12/17 08/27/21 Chelsea Martinez MD, MPH [address] [facility] [address] [place] [address] [email or web address] PCP - General Family Medicine 08/28/21 Radha Garibay CNM [address] [place] [address] Historical LMR Provider 06/10/17 2 Mason Bush MD [address] [facility] [place] [address] Historical LMR Provider 06/10/17 Vero Tucker NP [address] [place] [address] [email or web address] Historical LMR Provider 06/10/17 09/02/21 Gerard Atkinson MD [address] [place] [address] Historical LMR Provider 06/10/17 Jonathon Maya PA-C [address] [place] [address] Orthopedics & Sports Medicine, [place] [address] Historical LMR Provider 06/10/17 Martin Pulido MD [address] [place], [place] [id number] [place] [address] [email or web address] Historical LMR Provider 06/10/17 09/02/21 Jennifer Dimas NP [address] [place] [address] Historical LMR Provider 06/10/17 Jannie Vazquez FNP [address] [place] [address] Historical LMR Provider 06/10/17 Padilla Al CNP [address] [place], [place] [id number] [place] [address] Historical LMR Provider 06/10/17 Talib Ugalde MD [address] [place] [address] [address] [place] [address] [email or web address] Insurance Assigned Provider 04/26/18 11/29/18 Greg Godoy MD [address] [facility] [place] [address] [email or web address] Insurance Assigned Provider 11/29/18 10/30/19 Greg Godoy MD [address] [facility] [place] [address] [email or web address] Insurance Assigned Provider 12/02/19 01/30/20 Chelsea Martinez MD, MPH [address] [facility] [address] [place] [address] [email or web address] Insurance Assigned Provider 03/04/21 05/04/23 documented as of this encounter Additional Source Comments The information contained in this document represents components of the legal health record. It is not the complete legal health record[facility]
--- OUTSIDE RECORDS SUMMARY | 2025-05-06 17:50 | XMS_ITS | Encounter Summary ---
Author Organization [facility] Address [facility] [address] [place] [id number] Phone Care Team Providers Care Vice President Of Human Resources Name Role Phone Mason Bush MD Unavailable Jonathon Maya PA-C Unavailable [phone] Jannie Vazquez Unavailable Chelsea Martinez MD, MPH Primary Care Provid er Encounter Details Date Type Department Care Team (Late st Contact Info) Description 08/07/2023 Procedure Pass [facility], [address] [address] Social History Tobacco Use Types Packs/Day Years [...] work, study, or receive health care? No 09/18/2022 Education Answer Date Recorded Are you interested in help w ith more adult education (for example, completing high school, GED, job training, learning the Hungarian language, technical skills, or developing parenting skills)? No 09/18/2022 Food Answer Date Recorded Within the past 6 months we worried whether our food would run out before we got money to buy more. Never True 09/18/2022 Within the past 6 months the food we bought just didn't last and we didn't have enough money to get more. Never True Residential Stability Answer Date Recor ded What is your housing situation today? I have malka mejia 09/18/2022 How many times have you move d in the past 12 months? Zero (I did not move) 09/18/2022 Paying for Meds Answer Date Recorded Do you have trouble paying for medicines? No 09/18/2022 Paying Utility Bills Answer Date Record ed Do you have trouble paying your heating or elect ricity bill? No 09/18/2022 Transportation Answer Date Recorded Has the lack of transportati on kept you from medical appointments or from getting medications? No 09/18/2022 Unemployment Answer Date Recorded Are you currently unemployed or working on a part-time or temporary basis, and looking for work? No 09/18/2022 Digital Access Answer Date Recorded No 01/15/2023 No 01/15/2023 Reliable internet access at home? Not on file 01/15/2023 Device with a working camera? Not on file Intimate Partner Violence Answer Date R ecorded Denied Basic Needs Not on file 09/18/2022 In the past 12 months have y ou been in a relationship with a person who hurts, threatens, or tries to control you? No 09/18/2022 Worried food would run out Not on file 09/18 In the past 12 months have y ou been in a relationship with a person who hurts, threatens, or tries to control you? 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 Not on file Not on file documented as of this encounter Plan of Treatment Upcoming Encounters Date Type Department Care Team (Late st Contact Info) Description 07/03/2024 Procedure Pass [address] [address] 07/23/2025 4:00 PM EST Appointment [facility] [address] [place] [address] Mason Bush MD [address] [facility], [facility] [address] [place] [address] documented as of this encounter Visit Diagnoses Not on filedocumented in this encounter Additional Health Concerns Infection Onset Date Last Indicated Resolved Time CoV-Risk 08/01/2024 08/01/2024 08/12/2024 1:21 AM EST Assessment Noted Time PHQ-2 Depression Total Score: 0 12/13/19 1:30 PM EDT documented as of this encounter Care Teams Vice President Of Human Resources Relationship Specialty Start Date End Date Chelsea Martinez MD, MPH [address] [facility] [address] [place] [address] PCP - General Family Medicine 08/28/21 Mason Bush MD [address] [facility], [address] [place] [address] Historical LMR Provider 06/10/17 Jonathon Maya PA-C [address] [place] [address] Orthopedics & Sports Medicine, [place] [address] Historical LMR Provider 06/10/17 Jannie Vazquez FNP [address] [place] [id number] Historical LMR Provider 06/10/17 documented as of this encounter Additional Source Comments The information contained in this document represents components of the legal health record. It is not the complete legal health record.[facility]
--- OUTSIDE RECORDS SUMMARY | 2025-05-06 17:50 | XMS_ITS | Encounter Summary ---
Author Organization [facility] Address [address] [facility] [address] [place] [address] Phone Care Team Providers Care Onboarding Specialist Name Role Phone Mason Bush MD Unavailable Jonathon Maya PA-C Unavailable Jannie Vazquez Unavailable Chelsea Martinez MD, MPH Primary Care Provid er Encounter Details Date Type Department Care Team (Late st Contact Info) Description 08/07/2023 Transcribe Orders Virtual Department [address] [place] [address] Chelsea Martinez MD, MPH [address] [facility] [address] [place] [address] [email or web address] Encounter for screening mammogram for malignant neoplasm of breast (Primary Dx) Social History Tobacco Use Types Packs/Day Years Used Date Smoking Tobacco: Never Smokeless Tobacco: Never Alcohol Use Standard Drinks/Week Comments Yes 1 (1 standard drink = 0.6 oz pur e alcohol) Child or Family Care Answer Date Record ed Do you have problems with on e of the following making it difficult for you to work, study, or receive health care? No 09/18/2022 Education Answer Date Recorded Are you interested in help w ith more adult education (for example, completing high school, GED, job training, learning the Latvian language, technical skills, or developing parenting skills)? 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 Annual screening us Chelsea Martinez MD, MPH IMG MG EXAMS Eloise l Result documented in this encounter Visit Diagnoses Diagnosis Encounter for screening mammogram for malignant neoplasm of breast- Primary Encounter for screening mammogram for malignant neoplasm of breast documented in this encounter Additional Health Concerns Infection Onset Date Last Indicated Resolved Time CoV-Risk 08/01/2024 08/01/2024 08/12/2024 1:21 AM EST Assessment Noted Time PHQ-2 Depression Total Score: 0 12/13/19 1:30 PM EDT documented as of this encounter Care Teams Onboarding Specialist Relationship Specialty Start Date End Date Chelsea Martinez MD, MPH [address] [facility] [address] [place] [address] [email or web address] PCP - General Family Medicine 08/28/21 Mason Bush MD [address] [facility], [address] [place] [address] Historical LMR Provider 06/10/17 Jonathon Maya PA-C [address] [facility], [facility] [place] [address] Historical LMR Provider 06/10/17 Jannie Vazquez FNP [address] [place] [address] Historical LMR Provider 06/10/17 documented as of this encounter Additional Source Comments The information contained in this document represents components of the legal health record. It is not the complete legal health record.[facility]
== END 2025-05-06 14:41 | disposition home or self-care (01) ==
LOC: HO.HPS 13:59
PROVIDERS: PCP Internal Medicine; Visit Provider Hospitalist
DX: J45.50 Severe persistent asthma, uncomplicated (principal); T78.40XD Allergy, unspecified, subsequent encounter; M25.50 Pain in unspecified joint; R05.3 Chronic cough; R91.1 Solitary pulmonary nodule
CPT/HCPCS: 99214

== ENCOUNTER 2025-05-06 13:59 | Outpatient (REF) | payer OTHER, SELFPAY | END 2025-05-06 14:00 | disposition home or self-care (01) | LOC: HO.LAB 13:59 | PROVIDERS: PCP Family Medicine; Visit Provider Hospitalist | DX: J44.89 Other specified chronic obstructive pulmonary disease (principal); J45.50 Severe persistent asthma, uncomplicated; T78.40XD Allergy, unspecified, subsequent encounter; M25.50 Pain in unspecified joint; R05.3 Chronic cough; R91.1 Solitary pulmonary nodule | CPT/HCPCS: 36415; 82785; 85652; 86200; 99212 ==